=== PATIENT | male | born 1970 | race Caucasian/White ===

== ENCOUNTER 2024-01-03 18:38 | Emergency (ER) | payer MEDICAID, OTHER ==
--- NOTE | 2024-01-03 18:45 | ED Physician Documentation ---
History of Present Illness - Stated complaint Stated Complaint: FALL/ETOH - History obtained from History obtained from: Patient, EMS - Additonal information Additional information: He checked into detox today, his breathalyzer was 399 and he had a fall injuring his left elbow. There was no head strike. Patient has no complaints. Detox looking for medical clearance per EMS. PD PAST MEDICAL HISTORY - Present Medications Home Medications: Ambulatory Orders Medication Instructions Recorded Confirmed No Known Home Medications 01/03/24 01/03/24 - Allergies Allergies/Adverse Reactions: Allergies Allergy/AdvReac Type Severity Reaction Status Date / Time No Known Drug Allergies Allergy Verified 01/03/24 18:53 PD ED PE NORMAL - Vitals Vital signs reviewed: Yes - General General: Alert and oriented X 3, No acute distress, Other (Slow slurred speech but a decent historian.) - HEENT HEENT: PERRL - Neck Neck: Supple, no meningeal sign, No bony TTP - Cardiac Cardiac: RRR, No murmur - Respiratory Respiratory: No respiratory distress, Clear bilaterally - Abdomen Abdomen: Non tender - Extremities Extremities: Other (abrasion L elbow, ) - Neuro Neuro: Alert and oriented X 3 Eye Opening: Spontaneous Motor: Obeys Commands Verbal: Oriented GCS Score: 15 - Psych Psych: Normal mood, Normal affect Results - Vitals Vitals: Vital Signs - 24 hr 01/03/24 01/03/24 01/03/24 18:47 19:11 20:21 Temperature 36.7 C Heart Rate 85 93 Respiratory 18 17 16 Rate Blood Pressure 121/86 H O2 Saturation 93 99 Oxygen O2 Source Room air - Labs Labs: Laboratory Tests 01/03/24 22:05 Ethyl Alcohol 421.7 PD Medical Decision Making - ED course ED course: At this point he seems uninjured other than an abrasion over the elbow. It is not tender and he has full range of motion we will keep him around in the emergency department until clinical sobriety at which point he can go back to detox. We will reevaluate and reassess need for testing if anything were to change. At this point I do not think any medical testing is necessary. Initially the "goalpost" for discharge per detox wash walking with walker. He walked independently here and flagged for discharge. Subsequently notified by RN ARNOLD was needed by detox. S/O to Dr Loera pending that,. Departure - Departure Disposition: 01 Home, Self Care Clinical Impression: Alcohol intoxication Qualifiers: Complication of substance-induced condition: uncomplicated Qualified Code(s): F10.920 - Alcohol use, unspecified with intoxication, uncomplicated Condition: Good Record reviewed to determine appropriate education?: Yes Instructions: ED Alcohol Intoxication Comments: Recommend returning to [facility] detox. Do not drink on the way.
[2024-01-03 20:31] VITALS: O2SAT 99
[2024-01-04] MEDS: LORazepam 2 MG/ML VIAL IM STA (03:45)
[2024-01-04 03:56] VITALS: BP 121/91
--- NOTE | 2024-01-27 12:16 | ED Physician Documentation ---
ED Addendum - Addendum Addendum: 01/27/24 12:14 The patient was signed out to me at change of shift by Dr. Schaffer, pending transfer to [facility] for alcohol dependency treatment. The initial plan had been for him to be to the point where he was ambulatory, but upon calling [facility], the RN there stated that actually they needed another alcohol level on him as his original one had been over 400. A repeat ethanol level was performed and found to be 323. We did call [facility] back and they stated this was acceptable and the patient could go over there. He was discharged from the ED and sent via taxi to [facility]. Final impression: 1. Acute alcohol intoxication with dependence Disposition: Discharge with plan to go straight to [facility] in stable condition.
== END 2024-01-04 04:31 | disposition home or self-care (01) ==
LOC: ED 18:38
DX: S50.312A Abrasion of left elbow, initial encounter (principal); W18.30XA Fall on same level, unspecified, initial encounter; Y92.538 Other ambulatory health services establishments as the place of occurrence of the external cause; F10.129 Alcohol abuse with intoxication, unspecified; Y90.8 Blood alcohol level of 240 mg/100 ml or more
CPT/HCPCS: 36415; 82077; 96372; 99283; 99284; J2060